=== PATIENT | male | born 1960 | race Caucasian/White ===

== ENCOUNTER → 2019-12-31 | Outpatient (CLI) | payer BC | END | disposition home or self-care (01) | LOC: LAB SHORT 13:47 → LAB EV 13:47 | DX: L03.039 Cellulitis of unspecified toe (principal); B99.9 Unspecified infectious disease | CPT/HCPCS: 87070; 87075; 87077; 87147; 87186; 87205 ==

== ENCOUNTER 2021-06-01 01:32 | Day surgery (SDC) | payer BC | END 2021-06-01 23:18 | disposition home or self-care (01) | LOC: WOUND 01:32 | DX: E10.621 Type 1 diabetes mellitus with foot ulcer (principal); L97.522 Non-pressure chronic ulcer of other part of left foot with fat layer exposed; L89.893 Pressure ulcer of other site, stage 3; E10.42 Type 1 diabetes mellitus with diabetic polyneuropathy; I87.2 Venous insufficiency (chronic) (peripheral); E10.59 Type 1 diabetes mellitus with other circulatory complications | CPT/HCPCS: G0463 ==

== ENCOUNTER 2021-06-08 00:32 | Day surgery (SDC) | payer BC | END 2021-06-08 23:00 | disposition home or self-care (01) | LOC: WOUND 00:32 | DX: E10.621 Type 1 diabetes mellitus with foot ulcer (principal); L97.522 Non-pressure chronic ulcer of other part of left foot with fat layer exposed; L89.893 Pressure ulcer of other site, stage 3; I87.2 Venous insufficiency (chronic) (peripheral); E10.42 Type 1 diabetes mellitus with diabetic polyneuropathy; E10.59 Type 1 diabetes mellitus with other circulatory complications | CPT/HCPCS: A9270 ==

== ENCOUNTER 2021-06-15 01:38 | Day surgery (SDC) | payer BC | END 2021-06-15 23:41 | disposition home or self-care (01) | LOC: WOUND 01:38 | DX: E10.621 Type 1 diabetes mellitus with foot ulcer (principal); L97.522 Non-pressure chronic ulcer of other part of left foot with fat layer exposed; E08.42 Diabetes mellitus due to underlying condition with diabetic polyneuropathy; E10.59 Type 1 diabetes mellitus with other circulatory complications; I87.2 Venous insufficiency (chronic) (peripheral) | CPT/HCPCS: A9270; G0463 ==

== ENCOUNTER 2021-06-29 02:32 | Day surgery (SDC) | payer BC | END 2021-06-29 23:30 | disposition home or self-care (01) | LOC: WOUND 02:32 | DX: E10.621 Type 1 diabetes mellitus with foot ulcer (principal); L97.522 Non-pressure chronic ulcer of other part of left foot with fat layer exposed; I87.2 Venous insufficiency (chronic) (peripheral); E10.59 Type 1 diabetes mellitus with other circulatory complications; E10.42 Type 1 diabetes mellitus with diabetic polyneuropathy; L89.893 Pressure ulcer of other site, stage 3 | CPT/HCPCS: G0463 ==

== ENCOUNTER 2021-07-13 01:16 | Day surgery (SDC) | payer BC ==
[2021-07-19] MEDS ORDERED: ATOR80 PO (13:45)
[2021-07-19] MEDS ORDERED: BUPR150ER PO (13:46)
[2021-07-19] MEDS ORDERED: CLOP75 PO (13:46)
[2021-07-19] MEDS ORDERED: ZESTRIL40 M1 PO (13:47)
[2021-07-19] MEDS ORDERED: HUMALOG100 UNIT/1 SC (13:47)
[2021-07-19] MEDS ORDERED: METO25 PO (13:48)
[2021-07-19] MEDS ORDERED: SILVADENE20 G1 TOP (13:48)
[2021-07-20] MEDS ORDERED: METO100 PO (07:56)
[2021-07-20] MEDS ORDERED: INSPUMP SC (07:56)
== END 2021-07-13 23:14 | disposition home or self-care (01) ==
LOC: WOUND 01:16
DX: E10.621 Type 1 diabetes mellitus with foot ulcer (principal); L97.522 Non-pressure chronic ulcer of other part of left foot with fat layer exposed; L89.893 Pressure ulcer of other site, stage 3; E10.42 Type 1 diabetes mellitus with diabetic polyneuropathy; I87.2 Venous insufficiency (chronic) (peripheral); E10.59 Type 1 diabetes mellitus with other circulatory complications
CPT/HCPCS: A9270

== ENCOUNTER 2021-08-10 01:23 | Day surgery (SDC) | payer BC ==
[~2021-08-10 01:23] MED LIST: ATOR80 PO; BUPR150ER PO; CLOP75 PO; HUMALOG100 UNIT/1 SC; INSPUMP SC; METO100 PO; METO25 PO; SILVADENE20 G1 TOP; ZESTRIL40 M1 PO
== END 2021-08-10 23:50 | disposition home or self-care (01) ==
LOC: WOUND 01:23
DX: E10.621 Type 1 diabetes mellitus with foot ulcer (principal); L97.522 Non-pressure chronic ulcer of other part of left foot with fat layer exposed; L89.893 Pressure ulcer of other site, stage 3; E10.42 Type 1 diabetes mellitus with diabetic polyneuropathy; I87.2 Venous insufficiency (chronic) (peripheral); E10.59 Type 1 diabetes mellitus with other circulatory complications
CPT/HCPCS: A9270

== ENCOUNTER 2021-09-07 06:57 | Day surgery (SDC) | payer BC ==
[~2021-09-07] VITALS: Ht 180.3 cm; Wt 100.0 kg
--- NOTE | 2021-09-07 13:30 | NUR ---
PT UP TO THE BATHROOM /C SBA. TOLERATED WELL. - BLEEDING OR SWELLING R GROIN AREA.
--- NOTE | 2021-09-07 13:56 | NUR ---
PT VERBALIZED UNDERSTANDING OF WRITTEN AND VERBAL D/C INST. IV REMOVED. PT TAKEN OUT OF THE HRT CENTER VIA W/C.
== END 2021-09-07 14:00 | disposition home or self-care (01) ==
LOC: MHTC 06:57
DX: E10.51 Type 1 diabetes mellitus with diabetic peripheral angiopathy without gangrene (principal); I70.223 Atherosclerosis of native arteries of extremities with rest pain, bilateral legs; E78.5 Hyperlipidemia, unspecified; I10 Essential (primary) hypertension; F17.220 Nicotine dependence, chewing tobacco, uncomplicated; Z79.02 Long term (current) use of antithrombotics/antiplatelets; Z79.4 Long term (current) use of insulin
CPT/HCPCS: 76937; 85347; 99152; 99153; C1725; C1760; C1769; C1887; C1894; J1644; J2250; J3010; J7030; Q9967

== ENCOUNTER 2021-09-12 08:49 | Day surgery (SDC) | payer BC | END 2021-09-12 23:02 | disposition home or self-care (01) | LOC: WOUND 08:49 | DX: E10.621 Type 1 diabetes mellitus with foot ulcer (principal); L97.529 Non-pressure chronic ulcer of other part of left foot with unspecified severity; L89.893 Pressure ulcer of other site, stage 3; E10.42 Type 1 diabetes mellitus with diabetic polyneuropathy; I87.2 Venous insufficiency (chronic) (peripheral); E10.59 Type 1 diabetes mellitus with other circulatory complications | CPT/HCPCS: G0463 ==

== ENCOUNTER 2021-09-24 14:21 | Inpatient (IN) | payer BC ==
[~2021-09-24] VITALS: Ht 180.3 cm; Wt 99.4 kg
[2021-09-24 15:02] LABS: BASOPHILS ABSOLUTE AUTO 0.03 K/mm3 (0.00-0.23); BASOPHILS PERCENT AUTO 1 % (0-2); EOSINOPHILS ABSOLUTE AUTO 0.19 K/mm3 (0.00-0.68); EOSINOPHILS PERCENT AUTO 3 % (0-6); Hematocrit 37.9 % (37.0-53.0); Hemoglobin 12.8 g/dL (13.5-17.5); IMMATURE GRAN ABSOLUTE AUTO 0.03 K/mm3 (0.00-0.10); IMMATURE GRAN PERCENT AUTO 1 % (0-1); LYMPHOCYTES ABSOLUTE AUTO 1.35 K/mm3 (0.84-5.20); LYMPHOCYTES PERCENT AUTO 21 % (21-46); MONOCYTES ABSOLUTE AUTO 0.73 K/mm3 (0.16-1.47); MONOCYTES PERCENT AUTO 12 % (4-13); Mean Corpuscular HGB 31.8 pg (26.0-34.0); Mean Corpuscular HGB Conc 33.8 g/dL (31.5-36.5); Mean Corpuscular Volume 94 fL (80-100); Mean Platelet Volume 10.9 fL (9.1-12.4); NEUTROPHILS ABSOLUTE AUTO 3.99 K/mm3 (1.96-9.15); NEUTROPHILS PERCENT AUTO 63 % (41-73); Platelet Count 326 K/mm3 (150-400); RDW Coefficient Variation 11.4 % (11.7-14.2); RDW Standard Deviation 39.7 fL (35.1-46.3); Red Blood Cell Count 4.03 M/mm3 (4.30-5.90); White Blood Cell Count 6.32 K/mm3 (4.00-11.30)
[2021-09-24 15:20] LABS: Albumin, Blood 2.4 g/dL (3.4-5.0); Albumin/Globulin Ratio 0.5 (0.8-1.8); Bilirubin, Total 0.3 mg/dL (0.1-1.0); Bun/Creatinine Ratio 17.9 (12.0-20.0); Calcium, Blood 9.3 mg/dL (8.5-10.1); Creatinine, Blood 1.45 mg/dL (0.60-1.20); Globulin, Blood 5.3 g/dL (2.2-4.0); Potassium, Blood 3.8 mmol/L (3.5-5.5); Total Protein, Blood 7.7 g/dL (6.4-8.2)
[2021-09-24] MEDS ORDERED: LISI20 PO (19:01)
[2021-09-24] MEDS ORDERED: ATOR40TA PO (19:01)
[2021-09-24] MEDS ORDERED: CLOP75 PO (19:02)
[2021-09-24] MEDS ORDERED: ATOR80 PO (19:02)
[2021-09-24] MEDS ORDERED: BUPR150ER PO (19:03)
[2021-09-24] MEDS ORDERED: METO100 PO (19:03)
[2021-09-24] MEDS ORDERED: HUMALOG100 UNIT/1 SC (19:04)
[2021-09-24] MEDS ORDERED: HUMALOG KW100 UNIT/1 SQ (19:05)
[2021-09-24] MEDS ORDERED: TRESIBA FL100 UNIT/2 SQ (19:05)
[2021-09-25 04:49] LABS: BASOPHILS ABSOLUTE AUTO 0.03 K/mm3 (0.00-0.23); BASOPHILS PERCENT AUTO 0 % (0-2); EOSINOPHILS ABSOLUTE AUTO 0.23 K/mm3 (0.00-0.68); EOSINOPHILS PERCENT AUTO 3 % (0-6); Hematocrit 34.1 % (37.0-53.0); Hemoglobin 11.6 g/dL (13.5-17.5); IMMATURE GRAN ABSOLUTE AUTO 0.05 K/mm3 (0.00-0.10); IMMATURE GRAN PERCENT AUTO 1 % (0-1); LYMPHOCYTES ABSOLUTE AUTO 1.43 K/mm3 (0.84-5.20); LYMPHOCYTES PERCENT AUTO 20 % (21-46); MONOCYTES ABSOLUTE AUTO 0.78 K/mm3 (0.16-1.47); MONOCYTES PERCENT AUTO 11 % (4-13); Mean Corpuscular HGB 32.4 pg (26.0-34.0); Mean Corpuscular Volume 95 fL (80-100); Mean Platelet Volume 10.9 fL (9.1-12.4); NEUTROPHILS PERCENT AUTO 65 % (41-73); Platelet Count 322 K/mm3 (150-400); RDW Coefficient Variation 11.4 % (11.7-14.2); RDW Standard Deviation 39.8 fL (35.1-46.3); Red Blood Cell Count 3.58 M/mm3 (4.30-5.90); White Blood Cell Count 7.12 K/mm3 (4.00-11.30)
[2021-09-25 05:17] LABS: Albumin, Blood 2.2 g/dL (3.4-5.0); Albumin/Globulin Ratio 0.5 (0.8-1.8); Bilirubin, Total 0.4 mg/dL (0.1-1.0); Bun/Creatinine Ratio 14.9 (12.0-20.0); C-REACTIVE PROTEIN, EXT RANGE 8.15 mg/dL (0.000-0.300); Calcium, Blood 8.4 mg/dL (8.5-10.1); Creatinine, Blood 1.34 mg/dL (0.60-1.20); Globulin, Blood 4.2 g/dL (2.2-4.0); Magnesium, Blood 1.6 mg/dL (1.6-2.4); Phosphorus, Blood 2.5 mg/dL (2.5-4.9); Potassium, Blood 4.1 mmol/L (3.5-5.5); Total Protein, Blood 6.4 g/dL (6.4-8.2)
--- NOTE | 2021-09-25 05:30 | NUR ---
SHIFT SUMMARY; ADMITTED TO FLOOR FOR OSTEOMYELITIS OF THE LEFT FOOT. DIABETIC ULCER THAT HAS NEVER HEALED PROPERLY CONTINUES TO DEVELOP FLUID FILLED BLISTERS. THIS TIME HE CAUGHT IT FOOT IN A STAIRCASE CAUSING INJURY TO THE SITE. SEVERAL DAYS LATER IT BLISTERED AND OPENED UP DRAINING PUS. TRYING TO TX AT HOME WITH NO SUCCESS. INFECTION IS NOW IN THE BONE. ON THE BOTTOM OF HIS FOOT UNDER PINKY TOE, THERE IS A INDURATED AREA WITH A PIN WHOLE OPENING THAT IS DRAINING. LEFT FOOT IS SWOLLEN UP TO THE ANKLE AREA. IVF STARTED. ABX GIVEN. INDEPENDENT IN THE ROOM. DIABETIC NORMALLY ON INSULIN PUMP BUT COMPANY HAS NOT DELIVERED TO HOME. VS WNL, AFEBRILE. WILL CONTINUE TO MONITOR. CALL LIGHT IN REACH.
--- NOTE | 2021-09-25 15:40 | NUR ---
I went to visit the patient earlier in his room 360. Patient lives independent with his spouse, Stephani Mcclain. Pt states he does not have a preference on home health agencies. He lives in a single story home and denies mobility barriers. Patient does not use any DME except DM supplies. Patient does not have a preference on SNF as well.
--- NOTE | 2021-09-25 18:14 | NUR ---
SHIFT SUMMARY: NO ACUTE EVENTS. PT NOW HAS HIS OWN INSULIN PUMP AND WILL DOSE HIS OWN INSULIN ( BROUGHT FROM HOME). DENIES PAIN. SIGNIFICANT EDEMA IN L FOOT WITH ERYTHEMA ON 5TH TOE. WOUND CULTURE SENT. L FOOT MRI COMPLETE. TOLERATING PO INTAKE. INDEPENDENT IN ROOM.
--- NOTE | 2021-09-26 04:16 | NUR ---
SHIFT SUMMARY PATIENT HAD NO ACUTE CHANGES OBSERVED. AXOX 4 AND INDEPENDENT IN THE ROOM. PATIENT USING OWN INSULIN PUMP AND SELF MONITORING/DOSING. REPORTED CBG 232 EARLIER IN SHIFT AND DROPPED INTO THE 40'S AND GIVES HIMSELF GLUCOSE TABLETS AND REPORTED BLOOD GLUCOSE WAS COMING BACK UP INTO 50'S AND INCREASING. PIV REMAINS INTACT. IV ABX INFUSED. NS INFUSING AT 50 mL/HR. VSS/AFEBRILE. DENIES PAIN, SOB, AND N/V. CALL LIGHT IN REACH. BED IN LOWEST POSITION. WILL CONTINUE TO MONITOR UNTIL DAY SHIFT NURSE ASSUMES CARE.
--- NOTE | 2021-09-26 05:26 | NUR ---
PATIENT REPORTS CBG STABLE AT 138, UP FROM 40'S; SELF MONITORING AND DOSING.
[2021-09-26 05:44] LABS: Vancomycin, Trough 24.5 ug/mL (5.0-10.0)
--- NOTE | 2021-09-26 06:18 | NUR ---
VANCO TROUGH 24.5 AND VANCO HELD AT THIS TIME PER PHARMACIST MARY, PENDING NEW LAB.
--- NOTE | 2021-09-26 16:36 | NUR ---
PATIENT TO BE DISCHARGED HOME TOMORROW, WILL NEED PO ABX TO CONTINUE THERAPY. TOMORROW IS A HOLIDAY, PHARMACIES WILL NOT BE OPEN. SPOKE TO DR. WOODRUFF, REQUESTED THAT ABX BE CALLED IN TO PHARMACY TODAY SO PT HAS THEM WHEN HE GETS HOME. RECEIVED TELEPHONE ORDER FOR AUGMENTIN 875 MG PO BID X 10 DAYS; CALLED IN TO [facility] AT 1540. PT'S TO NIGHT BAKER TODAY.
--- NOTE | 2021-09-26 17:13 | NUR ---
SHIFT SUMMARY: NO ACUTE EVENTS. WOUND ON L FIFTH TOE HAS STARTED TO OOZE FROM THE DORSAL ASPECT WELL PLANTAR ASPECT, POSSIBLY D/T MILD COMPRESSION OF KINGSLEY WRAP. WOUND CLEANED WITH WOUND CLEANSER, PATTED DRY. PLACED 2X2 GAUZE BETWEEN 4TH AND 5TH TOES TO KEEP HOG FEEDER, COVERED LATERAL ASPECT OF FOOT WITH EXUDRY AND SECURED WITH KINGSLEY WRAP (MILD COMPRESSION). DENIED PAIN. PT IS USING HIS OWN INSULIN PUMP NOW. TOLERATING DIET. INDEPENDENT IN ROOM. PLAN IS TO D/C HOME TOMORROW.
--- NOTE | 2021-09-27 05:26 | NUR ---
ELLY RESTED COMFORTABLY OVERNIGHT. NO COMPLAINTS OF DISCOMFORT OR PAIN. LEFT FOOT DRESSING REMAINS INTACT AND WITH LARGE SOCK COVERING THAT. TOLERATING IV FLUIDS WITHOUT DIFFICULTY. APPEARS TO BE VERY KNOWLEDGABLE ABOUT HIS CARB COVERAGE OVER AND ABOVE HIS BASAL RATE OF 1.2 UNITS/HR OF INSULIN. ELLY HAS AN APPOINTMENT ON WITH DR. ANGELES WHICH HE HAD PREVIOUSLY ARRANGED. HE IS LOOKING FORWARD TO BEING DISCHARGED HOME TODAY.
[2021-09-27 08:47] LABS: BASOPHILS ABSOLUTE AUTO 0.05 K/mm3 (0.00-0.23); BASOPHILS PERCENT AUTO 1 % (0-2); EOSINOPHILS ABSOLUTE AUTO 0.21 K/mm3 (0.00-0.68); EOSINOPHILS PERCENT AUTO 4 % (0-6); Hematocrit 35.8 % (37.0-53.0); Hemoglobin 11.8 g/dL (13.5-17.5); IMMATURE GRAN ABSOLUTE AUTO 0.06 K/mm3 (0.00-0.10); IMMATURE GRAN PERCENT AUTO 1 % (0-1); LYMPHOCYTES ABSOLUTE AUTO 1.28 K/mm3 (0.84-5.20); LYMPHOCYTES PERCENT AUTO 25 % (21-46); MONOCYTES PERCENT AUTO 12 % (4-13); Mean Corpuscular HGB 31.8 pg (26.0-34.0); Mean Corpuscular Volume 97 fL (80-100); Mean Platelet Volume 10.9 fL (9.1-12.4); NEUTROPHILS ABSOLUTE AUTO 3.02 K/mm3 (1.96-9.15); NEUTROPHILS PERCENT AUTO 58 % (41-73); Platelet Count 366 K/mm3 (150-400); RDW Coefficient Variation 11.2 % (11.7-14.2); RDW Standard Deviation 39.8 fL (35.1-46.3); Red Blood Cell Count 3.71 M/mm3 (4.30-5.90); White Blood Cell Count 5.22 K/mm3 (4.00-11.30)
[2021-09-27 09:05] LABS: C-REACTIVE PROTEIN, EXT RANGE 3.76 mg/dL (0.000-0.300)
[2021-09-27 09:07] LABS: Albumin, Blood 2.1 g/dL (3.4-5.0); Albumin/Globulin Ratio 0.4 (0.8-1.8); Bilirubin, Total 0.3 mg/dL (0.1-1.0); Bun/Creatinine Ratio 8.9 (12.0-20.0); Calcium, Blood 8.2 mg/dL (8.5-10.1); Creatinine, Blood 1.24 mg/dL (0.60-1.20); Globulin, Blood 5.2 g/dL (2.2-4.0); Total Protein, Blood 7.3 g/dL (6.4-8.2)
[2021-09-27 09:16] LABS: Vancomycin, Trough 20.8 ug/mL (5.0-10.0)
[2021-09-27] MEDS ORDERED: Acetaminophen650 M1 PO (11:37)
[2021-09-27] MEDS ORDERED: VISBIOME 112.51 EACH PO (11:39)
[2021-09-27] MEDS ORDERED: AMOCLA875 PO (11:41)
[2021-09-27] MEDS ORDERED: [UNRECOGNIZED DRUG - OTHER] SC ×2 (11:43→11:44)
--- NOTE | 2021-09-27 12:34 | NUR ---
DISCHARGE NOTE: PT EDUCATED ON DISCHARGE PLAN. PT HAS APPT SCHEDULED WITH DR. ANGELES ON THIS FRIDAY AT 4:15, ADVISED TO KEEP APPT. PT EDUCATED ON MEDICATIONS. PT VU. PT BELONGINGS PACKED UP AND PT ESCORTED TO POV BY [address] VIA .
--- NOTE | 2021-10-01 08:07 | NUR ---
Per chart review with Dr. Murdock, patient appropriate for discharge on 09/27/2021. Patient denied barriers and feels safe to return to his home with his . I plan to call the patient this morning to schedule a hospital follow up.
== END 2021-09-27 12:02 | disposition home or self-care (01) | DRG 638 ==
LOC: ER 14:21 → ERHOLD 18:32 → MEDS 21:45
PROVIDERS: Hospitalist; Pharmacist; Physician Assistant; ADMIT Family Medicine
DX: E11.69 Type 2 diabetes mellitus with other specified complication (principal); M86.8X7 Other osteomyelitis, ankle and foot; L03.116 Cellulitis of left lower limb; M84.478A Pathological fracture, left toe(s), initial encounter for fracture; B95.4 Other streptococcus as the cause of diseases classified elsewhere; B95.7 Other staphylococcus as the cause of diseases classified elsewhere; E11.51 Type 2 diabetes mellitus with diabetic peripheral angiopathy without gangrene; I73.9 Peripheral vascular disease, unspecified; E11.22 Type 2 diabetes mellitus with diabetic chronic kidney disease; E11.621 Type 2 diabetes mellitus with foot ulcer; L97.529 Non-pressure chronic ulcer of other part of left foot with unspecified severity; E11.42 Type 2 diabetes mellitus with diabetic polyneuropathy; N18.30 Chronic kidney disease, stage 3 unspecified; Z28.21 Immunization not carried out because of patient refusal; I12.9 Hypertensive chronic kidney disease with stage 1 through stage 4 chronic kidney disease, or unspecified chronic kidney disease; Z79.02 Long term (current) use of antithrombotics/antiplatelets; Z79.4 Long term (current) use of insulin; Z79.899 Other long term (current) drug therapy
CPT/HCPCS: 36415; 73630; 73718; 80053; 80202; 82565; 82947; 83605; 83735; 84100; 85025; 85651; 86140; 87040; 87070; 87075; 87076; 87185; 87205; 93971; 94760; 96365; 96366; 96367; 99284-25; A9270; J0744; J1650; J1815; J2543; J3370; J7030; J7050

== ENCOUNTER 2021-10-05 10:27 | Day surgery (SDC) | payer BC ==
[~2021-10-05] VITALS: Ht 177.8 cm; Wt 100.4 kg
[~2021-10-05 10:27] MED LIST changes: +AMOCLA875 PO; +ATOR40TA PO; +Acetaminophen650 M1 PO; +HUMALOG KW100 UNIT/1 SQ; +LISI20 PO; +TRESIBA FL100 UNIT/2 SQ; +VISBIOME 112.51 EACH PO; +[UNRECOGNIZED DRUG - OTHER] SC
--- NOTE | 2021-10-05 12:52 | NUR ---
10/05/21 1252 Alfonso Story BUPIVACAINE 0.5% 50 ML MIXED WITH EPI 0.25 ML PER ORDER TO MAKE BUPIVACAINE 0.5% 1:200,000 FOR INJECTION AT OPSITE BY DR ANGELES. MULTIDOSE VIAL. MIXED, VERIFIED, & DIVIDED IN OR BY RNS. 10 MLS INJECTED.
== END 2021-10-05 14:00 | disposition home or self-care (01) ==
LOC: ORSCSDS 10:27
PROVIDERS: Podiatrist Foot & Ankle Surgery
PROC: 0Y6Y0Z0 Detachment at Left 5th Toe, Complete, Open Approach (ICD-10-PCS; principal; 2021-10-05 11:55)
DX: M86.8X7 Other osteomyelitis, ankle and foot (principal); L03.032 Cellulitis of left toe; I10 Essential (primary) hypertension; E66.9 Obesity, unspecified; Z68.31 Body mass index [BMI] 31.0-31.9, adult; Z79.01 Long term (current) use of anticoagulants; Z79.899 Other long term (current) drug therapy
CPT/HCPCS: 82947; J2001; J2250; J2704; J3010; J3370; J7120

== ENCOUNTER → 2022-10-04 | Outpatient (CLI) | payer OTHER | END | disposition home or self-care (01) | LOC: LAB SHORT 13:46 | DX: L97.919 Non-pressure chronic ulcer of unspecified part of right lower leg with unspecified severity (principal) | CPT/HCPCS: 87070; 87075; 87077; 87147; 87186; 87205 ==

== ENCOUNTER 2022-11-07 04:03 | Day surgery (SDC) | payer OTHER | END 2022-11-07 22:52 | disposition home or self-care (01) | LOC: WOUND 04:03 | DX: E11.622 Type 2 diabetes mellitus with other skin ulcer (principal); L97.812 Non-pressure chronic ulcer of other part of right lower leg with fat layer exposed; E11.51 Type 2 diabetes mellitus with diabetic peripheral angiopathy without gangrene; I87.2 Venous insufficiency (chronic) (peripheral) | CPT/HCPCS: G0463 ==

== ENCOUNTER 2022-11-14 01:04 | Day surgery (SDC) | payer OTHER | END 2022-11-14 22:53 | disposition home or self-care (01) | LOC: WOUND 01:04 | DX: I87.2 Venous insufficiency (chronic) (peripheral) (principal); L97.212 Non-pressure chronic ulcer of right calf with fat layer exposed; E10.43 Type 1 diabetes mellitus with diabetic autonomic (poly)neuropathy; I73.9 Peripheral vascular disease, unspecified | CPT/HCPCS: G0463 ==

== ENCOUNTER 2022-11-28 02:54 | Day surgery (SDC) | payer OTHER | END 2022-11-28 23:11 | disposition home or self-care (01) | LOC: WOUND 02:54 | DX: E10.622 Type 1 diabetes mellitus with other skin ulcer (principal); L97.212 Non-pressure chronic ulcer of right calf with fat layer exposed; E10.43 Type 1 diabetes mellitus with diabetic autonomic (poly)neuropathy; I73.9 Peripheral vascular disease, unspecified; I87.2 Venous insufficiency (chronic) (peripheral) | CPT/HCPCS: 10140 ==

== ENCOUNTER 2022-12-05 03:33 | Day surgery (SDC) | payer OTHER | END 2022-12-05 23:35 | disposition home or self-care (01) | LOC: WOUND 03:33 | DX: E10.622 Type 1 diabetes mellitus with other skin ulcer (principal); L97.212 Non-pressure chronic ulcer of right calf with fat layer exposed; I73.9 Peripheral vascular disease, unspecified; I87.2 Venous insufficiency (chronic) (peripheral) | CPT/HCPCS: A9270 ==

== ENCOUNTER 2023-08-04 10:14 | Emergency (ER) | payer OTHER ==
[~2023-08-04] VITALS: Ht 180.3 cm; Wt 104.3 kg
[~2023-08-04 10:14] MED LIST changes: +CEPH500 PO
[2023-08-04 10:23] VITALS: BP 150/68
[2023-08-04 10:46] LABS: Hematocrit 36.2 % (37.0-53.0); Mean Corpuscular HGB 32.2 pg (26.0-34.0); Mean Corpuscular HGB Conc 33.1 g/dL (31.5-36.5); Mean Corpuscular Volume 97 fL (80-100); Mean Platelet Volume 11.4 fL (9.1-12.4); Platelet Count 195 K/mm3 (150-400); RDW Coefficient Variation 12.3 % (11.7-14.2); RDW Standard Deviation 43.8 fL (35.1-46.3); Red Blood Cell Count 3.73 M/mm3 (4.30-5.90); White Blood Cell Count 5.12 K/mm3 (4.00-11.30)
[2023-08-04 11:13] LABS: BASOPHILS ABSOLUTE MAN 0.05 K/mm3 (0.00-0.23); BASOPHILS PERCENT MAN 1 % (0-2); EOSINOPHILS PERCENT MAN 4 % (0-6); LYMPHOCYTES PERCENT MAN 6 % (21-46); MONOCYTES PERCENT MAN 6 % (4-13); NEUTROPHILS ABSOLUTE MAN 4.24 K/mm3 (1.96-9.15); SEG NEUTROPHILS PERCENT MAN 83 % (41-73); TOTAL CELLS COUNTED 100
[2023-08-04 11:17] LABS: Albumin, Blood 3.1 g/dL (3.4-5.0); Albumin/Globulin Ratio 0.7 (0.8-1.8); Bilirubin, Total 0.3 mg/dL (0.1-1.0); Bun/Creatinine Ratio 14.3 (12.0-20.0); Calcium, Blood 8.5 mg/dL (8.5-10.1); Creatinine, Blood 1.68 mg/dL (0.60-1.20); Globulin, Blood 4.3 g/dL (2.2-4.0); Magnesium, Blood 1.5 mg/dL (1.6-2.4); Phosphorus, Blood 1.2 mg/dL (2.5-4.9); Potassium, Blood 5.1 mmol/L (3.5-5.5); Total Protein, Blood 7.4 g/dL (6.4-8.2)
== END 2023-08-04 14:38 | disposition home or self-care (01) ==
LOC: ER 10:14
PROVIDERS: Physician Assistant
DX: U07.1 COVID-19 (principal); R60.0 Localized edema; E11.9 Type 2 diabetes mellitus without complications; E78.5 Hyperlipidemia, unspecified; Z79.899 Other long term (current) drug therapy; Z79.4 Long term (current) use of insulin
CPT/HCPCS: 71046; 80053; 83735; 83880; 84100; 85025; 93005; 93010; 99285-25

== ENCOUNTER 2025-06-28 01:19 | Emergency (ER) | payer OTHER ==
[~2025-06-28] VITALS: Ht 177.8 cm; Wt 118.8 kg
[2025-06-28 01:25] VITALS: BP 134/77
[2025-06-28 03:43] LABS: BASOPHILS ABSOLUTE AUTO 0.05 K/mm3 (0.00-0.23); BASOPHILS PERCENT AUTO 1 % (0-2); EOSINOPHILS ABSOLUTE AUTO 0.24 K/mm3 (0.00-0.68); EOSINOPHILS PERCENT AUTO 4 % (0-6); Hematocrit 43.4 % (37.0-53.0); Hemoglobin 14.3 g/dL (13.5-17.5); IMMATURE GRAN ABSOLUTE AUTO 0.07 K/mm3 (0.00-0.10); IMMATURE GRAN PERCENT AUTO 1 % (0-1); LYMPHOCYTES ABSOLUTE AUTO 1.52 K/mm3 (0.84-5.20); LYMPHOCYTES PERCENT AUTO 23 % (21-46); MONOCYTES ABSOLUTE AUTO 0.47 K/mm3 (0.16-1.47); MONOCYTES PERCENT AUTO 7 % (4-13); Mean Corpuscular HGB Conc 32.9 g/dL (31.5-36.5); Mean Corpuscular Volume 96 fL (80-100); NEUTROPHILS ABSOLUTE AUTO 4.24 K/mm3 (1.96-9.15); NEUTROPHILS PERCENT AUTO 64 % (41-73); NRBC ABSOLUTE 0.00 K/mm3 (0.00-0.02); NRBC Auto 0.0 /100 WBC (0.0-0.2); Platelet Count 236 K/mm3 (150-400); RDW Coefficient Variation 12.5 % (11.7-14.2); RDW Standard Deviation 43.8 fL (35.1-46.3)
[2025-06-28 04:03] LABS: Alanine Aminotransfer (ALT/SGP 34.0 U/L (12-78); Albumin, Blood 3.5 g/dL (3.4-5.0); Albumin/Globulin Ratio 0.7 (0.8-1.8); Anion Gap 12.0 mmol/L (3-11); Aspartate Aminotrans (AST/SGOT 36.0 U/L (12-37); Bilirubin, Total 0.3 mg/dL (0.1-1.0); Blood Urea Nitrogen 28.0 mg/dL (8-24); CO2, Blood 22.0 mmol/L (21-32); Calcium, Blood 8.5 mg/dL (8.5-10.1); Chloride, Blood 105.0 mmol/L (98-108); Creatinine, Blood 2.04 mg/dL (0.60-1.20); Ethanol (Alcohol), Blood, Med 124.0 mg/dL; Globulin, Blood 4.7 g/dL (2.2-4.0); Glucose, Blood 175.0 mg/dL (70-99); Potassium, Blood 5.2 mmol/L (3.5-5.5); Sodium, Blood 134.0 mmol/L (136-145); Total Protein, Blood 8.2 g/dL (6.4-8.2)
== END 2025-06-28 05:12 | disposition home or self-care (01) ==
LOC: ER 01:19
PROVIDERS: Student in an Organized Health Care Education/Training Program
DX: S01.01XA Laceration without foreign body of scalp, initial encounter (principal); F10.929 Alcohol use, unspecified with intoxication, unspecified; Y90.6 Blood alcohol level of 120-199 mg/100 ml; E11.42 Type 2 diabetes mellitus with diabetic polyneuropathy; E78.5 Hyperlipidemia, unspecified; Z89.422 Acquired absence of other left toe(s); Z79.02 Long term (current) use of antithrombotics/antiplatelets; Z79.4 Long term (current) use of insulin; Z79.899 Other long term (current) drug therapy; W19.XXXA Unspecified fall, initial encounter
CPT/HCPCS: 12001; 70450; 72125; 73030; 80053; 80320; 84484; 85025; 93005; 93010; 99284-25